=== PATIENT | male | born 1950 | race Caucasian/White ===

== ENCOUNTER 2017-02-23 05:46 | Day surgery (SDC) | payer BC ==
--- NOTE | ~2017-02-23 | EGD ---
EGD REPORT [facility] [address] [place] [address] NAME: NICK WARD : 54 STATUS : REG [facility]#: [id number] AGE: 66 ADM/REG DATE : 02/23/17 MR#: [id number] REPORT SERV DATE: 02/23/17 DICTATED BY: PRERNA MCDONALD DATE: 02/23/17 REPORT STATUS : Draft TRANSCRIBED BY: [facility] DATE: 02/23/17 End[facility] Center Patient Name: Nick Ward Date of : 1950 Attending MD: MARVIN MCDONALD MD Procedure Date No Time: 02/23/2017 Procedure: Colonoscopy Indications: Screening for colorectal malignant neoplasm, Last colonoscopy remote past Referring MD: RAFITA BRITO Medicines: See the Anesthesia note for documentation of the administered medications Complications: No immediate complications. Estimated blood loss: None. Procedure: Pre-Anesthesia Assessment: - ASA Grade Assessment: II - A patient with mild systemic disease. - Prior to the procedure, a History and Physical was performed, and patient medications and allergies were reviewed. The patient's tolerance of previous anesthesia was also reviewed. The risks and benefits of the procedure and the sedation options and risks were discussed with the patient. All questions were answered, and informed consent was obtained. Prior Anticoagulants: The patient has taken aspirin, last dose was 1 day prior to procedure. After reviewing the risks and benefits, the patient was deemed in satisfactory condition to undergo the procedure. After I obtained informed consent, the scope was passed under direct vision. Throughout the procedure, the patient's blood pressure, pulse, and oxygen saturations were monitored continuously. The PCF [id number] was introduced through the anus and advanced to the cecum, identified by appendiceal orifice and ileocecal valve. The ileocecal valve, appendiceal orifice and rectum were photographed. The entire colon was examined. The colonoscopy was performed without difficulty. The patient tolerated the procedure well. The quality of the bowel preparation was adequate. Findings: The perianal and digital rectal examinations were normal. A sessile polyp was found in the cecum. The polyp was diminutive in size. The polyp was removed with a cold biopsy forceps. Resection and retrieval were complete. A sessile polyp was found at the splenic flexure. The polyp was 8 mm in EGD REPORT [address] [place]. [address] NAME: NICK WARD : [birth year] STATUS : REG [facility]#: [id number] AGE: 66 ADM/REG DATE : 02/23/17 MR#: [id number] REPORT SERV DATE: 02/23/17 DICTATED BY: PRERNA MCDONALD DATE: 02/23/17 REPORT STATUS : Draft TRANSCRIBED BY: [employer] DATE: 02/23/17 size. The polyp was removed with a cold snare. Resection and retrieval were complete. A sessile polyp was found in the distal descending colon. The polyp was 4 mm in size. The polyp was removed with a cold snare. Resection and retrieval were complete. Multiple small and large-mouthed diverticula were found in the entire colon. Non-bleeding internal hemorrhoids were found during retroflexion and were Grade I (internal hemorrhoids that do not prolapse). No other significant abnormalities were identified in a careful examination of the remainder of the colon. Impression: - One diminutive polyp in the cecum. Resected and retrieved. - One 8 mm polyp at the splenic flexure. Resected and retrieved. - One 4 mm polyp in the distal descending colon. Resected and retrieved. - Diverticulosis in the entire examined colon. - Non-bleeding internal hemorrhoids. Recommendation: - Patient has a contact number available for emergencies. The signs and symptoms of potential delayed complications were discussed with the patient. Return to normal activities tomorrow. Written discharge instructions were provided to the patient. - High fiber diet indefinitely. - Discharge patient to home. - Continue present medications. - Await pathology results. - Repeat colonoscopy in 3 - 5 years for surveillance based on pathology results. Procedure Code(s): --- Professional --- 25397, Colonoscopy, flexible, proximal to splenic flexure; with removal of tumor(s), polyp(s), or other lesion(s) by snare technique 73035, 59, Colonoscopy, flexible, proximal to splenic flexure; with biopsy, single or multiple Diagnosis Code(s): --- Professional --- D12.4, Benign neoplasm of descending colon D12.3, Benign neoplasm of transverse colon D12.0, Benign neoplasm of cecum K64.0, First degree hemorrhoids K57.30, Diverticulosis of large intestine without perforation or abscess without bleeding EGD REPORT [facility] [address] [place]. [address] NAME: NICK WARD : 54 STATUS : REG [facility] PAT#: [id number] AGE: 66 ADM/REG DATE : 02/23/17 MR#: [id number] REPORT SERV DATE: 02/23/17 DICTATED BY: PRERNA MCDONALD DATE: 02/23/17 REPORT STATUS : Draft TRANSCRIBED BY: [employer] DATE: 02/23/17 Z12.11, Encounter for screening for malignant neoplasm of colon CPT copyright 2013 [employer]. All rights reserved. The codes documented in this report are preliminary and upon death surveys coder review may be revised to meet current compliance requirements. MARVIN MCDONALD MD 02/23/2017 8:01 AM This report has been signed electronically. Number of Addenda: 0 Note Initiated On: 02/23/2017 7:34 AM Scope Withdrawal Time 0 hours 13 minutes 20 seconds [address] [place] [address]
[~2017-02-23 05:46] MED LIST: ASAB PO; ATEN25 PO; CELEBREX2 PO; CLARIT10 PO; ELIQUIS 5 MG TAB5 MG PO; MULTIPLE VIT PO; PCET PO; PERCOCET1 TA4 PO; PR12.5 PO; ULTRAM50 PO; ZOFRAN4 PO
== END 2017-02-23 23:59 | disposition home or self-care (01) ==
LOC: DMU 05:46
PROVIDERS: Internal Medicine Gastroenterology
PROC: 0DBL8ZZ Excision of Transverse Colon, Via Natural or Artificial Opening Endoscopic (ICD-10-PCS; 2017-02-23)
PROC: 0DBH8ZZ Excision of Cecum, Via Natural or Artificial Opening Endoscopic (ICD-10-PCS; principal; 2017-02-23 07:30)
PROC: 0DBM8ZZ Excision of Descending Colon, Via Natural or Artificial Opening Endoscopic (ICD-10-PCS; 2017-02-23 07:30)
DX: Z12.11 Encounter for screening for malignant neoplasm of colon (principal); D12.0 Benign neoplasm of cecum; K63.5 Polyp of colon; D12.3 Benign neoplasm of transverse colon; K64.0 First degree hemorrhoids; K57.30 Diverticulosis of large intestine without perforation or abscess without bleeding; E66.9 Obesity, unspecified; G47.33 Obstructive sleep apnea (adult) (pediatric); Z79.82 Long term (current) use of aspirin; Z79.1 Long term (current) use of non-steroidal anti-inflammatories (NSAID); Z79.899 Other long term (current) drug therapy; Z88.0 Allergy status to penicillin
CPT/HCPCS: 88305